=== PATIENT | female | born 1980 | race Caucasian/White ===

== ENCOUNTER 2021-05-20 10:54 | Emergency (ER) | payer SELFPAY ==
--- OUTSIDE RECORDS SUMMARY | 2021-05-20 10:57 | XMS REPORT | Continuity of Care Document ---
:1980 Author Organization [facility] t Address [address] [place] [address] Care Team Providers Name Role Phone SATURNINO RO MD [facility] ([facility]) Primary Care Physician Vick Murphy MD Attending Clinician Chester Arciniega DO Attending Clinician Hung Chavez MD Attending Clinician Deisy RO Attending Clinician Robin Ojeda MD Attending Clinician Catherine Cotton MD Attending Clinician Ella Sabillon MD Attending Clinician NELDA Attending Clinician Unavailable Jose Miguel RO Attending Clinician Luz Pruett DO Attending Clinician Babar Post MD Attending Clinician Albin RO PGrupo Attending Clinician MD Matteo TALAMANTES Attending Clinician Unavailable MD SAM MARES Attending Clinician Unavailable SUZAN Attending Clinician Unavailable KENDRICK Attending Clinician Unavailable VERONIQUE Attending Clinician Unavailable SATURNINO Attending Clinician Unavailable Quincy TOLEDO Attending Clinician Unavailable JUANITA MOCK Admitting Clinician Unavailable MD Matteo TALAMANTES Admitting Clinician Unavailable MD SAM MARES Admitting Clinician Unavailable SATURNINO Admitting Clinician Unavailable Payers Payer Name Policy Type Policy Effective Date Expiration Date Sour ce Number COVID19 [facility] [id number] 2019 [place] UNINSURED 00:00:00 [facility] TESTING AND TREATMENT [id number] [facility] UNINSURED TESTING AND TREATMENT [id number] elf-Pay Problems Condition Condition Condition Status Onset Resolution Last Treating Co mments Source Name Details Category Date Date Treatment Clinician Date COVID-19 COVID-19 Disease Active [place] virus virus 8-15 [facility] detected detected 00:00: st 00 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 Allergies, Adverse Reactions, Alerts Allergy Allergy Status Severity Reaction(s) Onset Inactive Treating Comm ents Source Name Type Date Date Clinician Amlodipi Allergy Active Moderate HIVES/RASH 2019-[address] [facility] to 0-01 [facility] - substanc 00:00: Patient e 00 [facility] Amlodipi Propensi Active Hives [place] ne ty to 424 [facility] adverse 00:00: st reaction 00 s to drug Family History Family Member Diagnosis Comments Start Date Stop Date Source Natural brother Osteochondroma [place] Natural father Hypertension [place] [facility] Natural mother Diabetes [place] Me thodist Natural mother Hypertension [place] [facility] Natural mother Testicular cancer Otilia ston Protestant Natural mother Thyroid disease [place] Social History Social Habit Start Date Stop Date Quantity Comments Source History of Cigarette Smoker [place] [facility] tobacco use Tobacco use and 2021-05-18 2021-05-18 Never used Denzel Smith ethodist exposure 00:00:00 00:00:00 Alcohol intake 2021-05-18 2021-05-18 Current drinker [place] Protestant 00:00:00 00:00:00 of alcohol (finding) Alcohol Comment 2021-02-02 2021-02-02 socially [place] Sarah ethodist 00:00:00 00:00:00 Sex Ass[birth year] At [birth year] [facility] ponchoodist 00:00:00 00:00:00 Smoking Status Start Date Stop Date Source Current some day smoker 2021-05-18 00:00:00 [place] Medications Ordered Filled Start Stop Current Ordering Indication Dosage Frequency Signature Comments Components Source Medication Medication Date Date Medication? Clinician (SIG) Name Name cetirizine Yes Take by [place] HCl (ZYRTEC 05-18 mouth. Method i ORAL) 05:14: st 06 olmesartan Yes 10mg QD Take 10 mg [place] (BENICAR) 5 07 by mouth Meth zuleyma MG tablet 05:14: daily. st 06 omeprazole Yes 20mg QD Take 20 mg [place] (PriLOSEC) 05-18 by mouth Metho di 20 MG 05:14: daily. st capsule 06 levothyroxi Yes 25ug QD Take 25 Otilia ston ne 7-07 mcg by Methodi (SYNTHROID) 05:14: mouth st 25 mcg 06 daily. tablet famotidine Yes 40mg QD Take 40 mg [place] (PEPCID) 40 07 by mouth Meth zuleyma MG tablet 05:14: daily. st 06 meloxicam 2020- Yes 15mg QD Take 1 [place] (Mobic) 15 05-18 07-17 tablet (15 Me thodi mg tablet 00:00: 23:59 mg total) st 00 :00 by mouth daily for 10 days. polyethylen 2020- No 17g QD Take 17 g Mahoney e glycol 3-24 04-23 by mouth Method i (MIRALAX) 00:00: 23:[address] 17 gram 00 :00 30 days. packet acetaminoph 2020- No acute pain 1{tbl} Q6H Take 1-2 [place] en-codeine 02-02 tablets by Me eng (TYLENOL 00:00: 23:[address] WITH 00 :00 every 6 CODEINE #3) (six) 300-30 mg hours as per tablet needed for moderate pain for up to 7 days .acute pain. cephalexin 2020- No 500mg Q.[id number] Take 1 [place] (KEFLEX) 02-02 [id number] capsule M ethodi 500 MG 00:00: 23:59 3D ([address] capsule 00 :00 total) by mouth 3 (three) times a day for 7 days. magnesium 2020- No 296mL Take 1 [place] citrate 02-02 Bottle Methodi solution 00:00: 23:59 ([address] 00 :00 total) by mouth once for 1 dose. naproxen 2020- No 500mg Q.5D Take 1 [place] (NAPROSYN) 01-28 tablet Method i 500 MG 00:00: 23:59 ([address] tablet 00 :00 total) by mouth 2 (two) times a day as needed (pain) for up to 10 days. diazePAM 2020- No 5mg Q.5D Take 1 [place] (Valium) 5 01-28 tablet (5 Met hodi MG tablet 00:00: 23:59 mg total) st 00 :00 by mouth 2 (two) times a day for 5 days. methylPREDN 2020- No follow Otilia ston ISolone 01-28 package Methodi (MEDROL 00:00: 23:[address] DOSEPAK) 4 00 :00 mg tablet acetaminoph 2020- No acute pain 1{tbl} Q6H Take 1 [place] en-codeine 01-04 tablet by Met liz (TYLENOL 00:00: 23:[address] WITH 00 :00 every 6 CODEINE #3) (six) 300-30 mg hours as per tablet needed for moderate pain for up to 2 days .acute pain. aspirin-celine 2019-11- No 1{tbl} Q6H Take 1 [facility] taminophen- 0-17 11-16 tablet by [facility] caffeine 00:00: 23:[address] (Excedrin 00 :00 every 6 Migraine) (six) 250-250-65 hours as mg per needed for tablet headaches for up to 30 days. Limit 2 per day. Do not use over 3 days. sertraline 2019-11 No 50mg QD Take 1 [place] (Zoloft) 50 0-13 10-13 tablet (50 M ethodi MG tablet 00:00: 23:59 mg total) st 00 :00 by mouth daily. pregabalin 2019-11 No 50mg Q.5D Take 1 [place] (Lyrica) 50 0-13 11-12 capsule Meth zuleyma MG capsule 00:00: 23:59 ([address] 00 :00 total) by mouth 2 (two) times a day for 30 days. TiZANidine Yes 4mg Q.[id number] Take 1 [place] (Zanaflex) 08-09 [id number] capsule (4 Methodi 4 MG 00:00: 3D mg total) st capsule 00 by mouth 3 (three) times a day as needed for muscle spasms. acetaminoph 2019- No acute pain 1{tbl} Q6H Take 1-2 [place] en-codeine 08-05 10-04 tablets by [facility] (TYLENOL 00:00: 23:[address] WITH 00 :00 every 6 CODEINE #3) (six) 300-30 mg hours as per tablet needed for moderate pain for up to 10 days .acute pain. methocarbam 2019- No 750mg Q.25D Take [address] [facility] oL 07-31-19 tablet Methodi (Robaxin-75 00:00: 23:59 ([address] 0) 750 MG 00 :00 total) by tablet mouth 4 (four) times a day for 30 days. lidocaine 2019- No 1{patch Q24H Place 1 [facility] (Lidoderm) 07-31 } patch on Meth zuleyma 5 % 00:00: 00:[address] 00 :00 daily for 30 days. Remove & Discard patch within 12 hours or as directed by methylPREDN 2020-0 2020- No follow Otilia ston ISolone 07-31 package Methodi (MEDROL 00:00: 23:[address] DOSEPAK) 4 00 :00 mg tablet acetaminoph 2019-0 2020- No acute pain 1{tbl} Q6H Take 1-2 [place]oney en-codeine 9-16 tablets by Me eng (TYLENOL 00:00: 23:[address] WITH 00 :00 every 6 CODEINE #3) (six) 300-30 mg hours as per tablet needed for severe pain for up to 5 days .acute pain. cetirizine 2019-0 2020- No 10mg QD Take 1 [place] (ZyrTEC) 10 06-23 tablet (10 M ethodi MG tablet 00:00: 23:59 mg total) st 00 :00 by mouth daily for 30 days. amoxicillin 2020-0 2020- No 1{tbl} Q12H Take 1 [place] -pot 06-23 tablet by Methodi clavulanate 00:00: 23:[address] (AUGMENTIN) 00 :00 every 12 875-125 mg (twelve) per tablet hours for 10 days. prochlorper 2020-0 2020- No 10mg Q.5D Take 1 Otilia ston azine 8-06 09-05 tablet (10 Methodi (COMPAZINE) 00:00: 23:59 mg total) st 10 MG 00 :00 by mouth 2 tablet (two) times a day as needed for nausea or vomiting (headache) for up to 30 days. prochlorper 2020-0 2020- No 10mg Q.5D Take 1 Otilia ston azine 8-06 08-06 tablet (10 Method[facility] (COMPAZINE) 00:00: 00:00 mg total) st 10 MG 00 :00 by mouth 2 tablet (two) times a day as needed for nausea or vomiting (headache) for up to 30 days. Immunizations Ordered Immunization Filled Immunization Date Status Commen ts Source Name Name Tdap 2019-02-18 Completed [place] 00:00:00 [facility] Vital Signs Vital Name Observation Time Observation Value Comments Source Systolic blood 2021-05-18 20:42:00 153 mm[Hg] Ratna silverio Protestant pressure Diastolic blood 2021-05-18 20:42:00 83 mm[Hg] [place] [facility] pressure Heart rate 2021-05-18 20:42:00 55 /min Denzel Protestant Respiratory rate 2021-05-18 20:42:00 18 /min Siva cespedes Protestant Oxygen saturation in 2021-05-18 20:42:00 100 /min Mahoney Protestant Arterial blood by Pulse oximetry Body temperature 2021-05-18 17:52:52 36.83 Alejandra Siva cespedes Protestant Body height 2021-05-18 17:48:00 165.1 cm [place] [facility] Body weight 2021-05-18 17:48:00 81.647 kg [place] [facility] BMI 2021-05-18 17:48:00 29.95 kg/m2 [place] [facility] Weight 2020-08-12 23:31:00 163 [lb_av] [facility] - Patients [facility] BMI (Body Mass 2020-08-12 23:31:00 26.3 kg/m2 [facility] - Index) Patients [facility] Procedures Procedure Date / Time Performing Clinician Source Performed HC COMPLETE BLD COUNT 2021-05-18 19:16:00 Gino Ojeda on Protestant W/AUTO DIFF BASIC METABOLIC PANEL 2021-05-18 19:16:00 Gino Ojeda on Protestant TROPONIN 2021-05-18 19:16:00 Gino Ojeda Met hodist B NATRIURETIC PEPTIDE 2021-05-18 19:16:00 Gino Ojeda on Protestant ESTIMATED GFR 2021-05-18 19:16:00 Gino Ojeda Met hodist HCG QUALITATIVE, SERUM 2021-05-18 19:16:00 Leatha Murphy [place] SCREEN LIPASE LEVEL 2021-05-18 19:16:00 Gino Ojeda Met hodist XR CHEST 1 VW PORTABLE 2021-05-18 18:50:11 Gino Ojeda Protestant ECG ED PRELIMINARY 2021-05-18 18:19:14 Leatha Murphyto n Protestant INTERPRETATION ECG 12-LEAD 2021-05-18 18:10:[address] RENAL STONE PROTOCOL 2021-02-02 10:25:32 Francisco J Lopez URINE CULTURE 2021-02-02 09:07:00 Francisco J Lopez HC COMPLETE BLD COUNT 2021-02-02 09:03:00 Francisco J Lopez W/AUTO DIFF BASIC METABOLIC PANEL 2021-02-02 09:03:00 Francisco J Lopez HCG QUALITATIVE, SERUM 2021-02-02 09:03:00 Francisco J Lopez on Protestant SCREEN ESTIMATED GFR 2021-02-02 09:03:00 Francisco J Lopez odglenn URINALYSIS SCREEN AND 2021-02-02 08:44:00 Francisco J Lopez MICROSCOPY, WITH REFLEX TO CULTURE VA INJECT TRIGGER POINT, 1 2021-01-04 17:20:12 Omar Chavez OR 2 Go HC COMPLETE BLD COUNT 2021-01-04 16:06:00 Zulma Chavez W/AUTO DIFF Go COMPREHENSIVE METABOLIC 2021-01-04 16:06:00 Zulma Chavez PANEL Go ESTIMATED GFR 2021-01-04 16:06:00 Zulma Chavez Go METHYLMALONIC ACID, SERUM 2020-08-24 12:48:00 Shukri Sabillon ALDOSTERONE/RENIN RATIO 2020-08-17 00:00:00 Kirill Villegas BASIC METABOLIC PANEL 2020-08-17 00:00:00 Kirill Villegas on Protestant Carlitos METANEPHRINES, PLASMA 2020-08-17 00:00:00 Kirill Villegas on Protestant [place] TROPONIN 2020-08-05 22:16:[address] ANGIOGRAM CHEST ABDOMEN 2020-08-05 20:56:05 Shanique Arciniega PELVIS W AND OR WITHOUT Chester CONTRAST URINE CULTURE 2020-08-05 19:38:00 Shanique Arciniega Meth odist Chester HCG QUALITATIVE, URINE 2020-08-05 19:38:00 Shanique Arciniega on Protestant SCREEN Chester URINALYSIS SCREEN AND 2020-08-05 19:38:00 Shanique Arciniega n Protestant MICROSCOPY, WITH REFLEX TO Chester CULTURE HC COMPLETE BLD COUNT 2020-08-05 19:23:00 Zulma Chavez W/AUTO DIFF Go COMPREHENSIVE METABOLIC 2020-08-05 19:23:00 Zulma Chavez PANEL Go TROPONIN 2020-08-05 19:23:00 Zulma Chavez Go B NATRIURETIC PEPTIDE 2020-08-05 19:23:00 Zulma Chavez Go ESTIMATED GFR 2020-08-05 19:23:00 Zulma Chavez Go PHOSPHORUS LEVEL 2020-08-05 19:23:00 Zulma Chavez Protestant Go MAGNESIUM LEVEL 2020-08-05 19:23:00 Zulma Chavez Go SMEAR REVIEW 2020-08-05 19:23:00 Zulma Chavez Go ECG ED PRELIMINARY 2020-08-05 19:16:19 Shanique Arciniega M ethodist INTERPRETATION Chester ECG 12-LEAD 2020-08-05 19:00:32 Zulma Chavez Protestant Go HC COMPLETE BLD COUNT 2020-07-31 01:03:00 Daniel Pruett W/AUTO DIFF BASIC METABOLIC PANEL 2020-07-31 01:03:00 Daniel Pruett THYROID STIMULATING 2020-07-31 01:03:00 Daniel Pruett HORMONE T4, FREE 2020-07-31 01:03:00 Daniel Pruett ESTIMATED GFR 2020-07-31 01:03:00 Daniel Pruett MRI LUMBAR SPINE WO 2020-07-23 00:44:13 Sidney Post CONTRAST MRI THORACIC SPINE WO 2020-07-23 00:37:15 Sidney Post CONTRAST MRI CERVICAL SPINE WO 2020-07-23 00:20:39 Sidney Post CONTRAST MRI BRAIN WO CONTRAST 2020-07-23 00:20:24 Sidney Post IONIZED CALCIUM 2020-07-22 23:28:00 Sidney Post HC COMPLETE BLD COUNT 2020-07-22 23:28:00 Sidney Post W/AUTO DIFF MAGNESIUM LEVEL 2020-07-22 23:28:00 Sidney Post COMPREHENSIVE METABOLIC 2020-07-22 23:28:00 Sidney Post PANEL PHOSPHORUS LEVEL 2020-07-22 23:28:00 Sidney Post ESTIMATED GFR 2020-07-22 23:28:00 Sideny Post WET PREP 2020-06-26 18:59:00 Enedina Gillespie CHLAMYDIA GONORRHOEAE AND 2020-06-26 18:59:00 Enedina Gillespie TRICHOMONAS PANEL URINE CULTURE 2020-06-26 18:34:00 Enedina Gillespie URINALYSIS SCREEN AND 2020-06-26 18:12:00 Enedina Gillespie n Protestant MICROSCOPY, WITH REFLEX TO CULTURE HCG QUALITATIVE, URINE 2020-06-26 18:12:00 Enedina Gillespie on Protestant SCREEN COVID-19 QUALITATIVE 2020-06-23 09:09:00 Serene Mock RT-PCR CT HEAD WO CONTRAST 2020-06-17 05:37:10 Sidney Post HC COMPLETE BLD COUNT 2020-06-17 05:09:00 Sidney Post W/AUTO DIFF COMPREHENSIVE METABOLIC 2020-06-17 05:09:00 Sidney Post PANEL LACTIC ACID LEVEL, SEPSIS 2020-06-17 05:09:00 Sidney Post - NOW AND REPEAT 2X EVERY 3 HOURS ESTIMATED GFR 2020-06-17 05:09:00 Sidney Post ECG ED PRELIMINARY 2020-06-10 03:44:16 Zulma Chavez INTERPRETATION Go HC COMPLETE BLD COUNT 2020-06-10 01:50:00 Zulma Chavez W/AUTO DIFF Go COMPREHENSIVE METABOLIC 2020-06-10 01:50:00 Zulma Chavez PANEL Go CREATINE KINASE, TOTAL 2020-06-10 01:50:00 Zulma Chavez (CPK) Go TROPONIN 2020-06-10 01:50:00 Zulma Chavez Go B NATRIURETIC PEPTIDE 2020-06-10 01:50:00 Zulma Chavez Go HCG QUALITATIVE, SERUM 2020-06-10 01:50:00 Zulma Chavez SCREEN Go ESTIMATED GFR 2020-06-10 01:50:00 Zulma Chavez Go XR CHEST 1 VW PORTABLE 2020-06-10 01:41:28 Zulma Chavez Go ECG 12-LEAD 2020-06-10 01:24:56 Zulma Chavez Go COVID-19 QUALITATIVE 2020-06-08 09:35:00 Sidney Talamantes Protestant RT-PCR COVID-19 QUALITATIVE 2020-06-01 09:33:00 Fatoumata Mares Protestant RT-PCR Plan of Care Planned Activity Planned Date Details Comments Source Future Scheduled Test 2021-06-12 INFLUENZA VACCINE H mary Protestant 00:00:00 [code = INFLUENZA VACCINE] Future Scheduled Test 2001 Screening for [place] 00:00:00 malignant neoplasm of cervix (procedure) [code = 484118724] Future Scheduled Test 1998 Hepatitis C Ratna n Protestant 00:00:00 screening (procedure) [code = 197137970] Future Scheduled Test 1992 COVID-19 VACCINE Ho alex Protestant 00:00:00 (1) [code = COVID-19 VACCINE (1)] Instructions Contusion [facility] Encounters Start End Encounter Admission Attending Care Care Encounter Source Date/Time Date/Time Type Type Clinicians Facility Department ID 2021-05-18 2021-05-18 Emergency NABEEL, [facility] [place] 064 [id number] [place] 00:00:00 00:00:00 KALIF 519 Method i 2021-05-18 2021-05-18 Emergency MONICA, [facility] [place] 064 [id number] [place] 00:00:00 00:00:00 YASIN 455 Method i 2021-05-05 2021-05-05 Emergency WINGKUN, [facility] [id number] [place] 00:00:00 00:00:00 FATOUMATA-MAY 035 Me thodi 2021-02-02 2021-02-02 Emergency OGHOGHO, [place] [address] [id number] [place] 00:00:00 00:00:00 EYITEMI 474 Method i 2021-01-28 2021-01-28 Emergency PARVEEN, [place] [address] [id number] [place] 00:00:00 00:00:00 GINO 260 Method i 2021-01-04 2021-01-04 Emergency WINGKUN, [facility] [id number] [place] 00:00:00 00:00:00 FATOUMATA-MAY 014 Me thodi 2020-08-28 2020-08-28 Emergency DANDRE, ZOYA [facility] [place] 064 [id number] [place] 00:00:00 00:00:00 227 Method i 2020-08-24 2020-08-24 Outpatient FRIDA, [facility] [id number] [place] 00:00:00 00:00:00 SHUKRI 830 Method i 2020-08-24 2020-08-24 Outpatient FRIDA, [facility] [id number] [place] 00:00:00 00:00:00 SHUKRI 295 Method i 2020-08-17 2020-08-17 Outpatient NELDA, [facility] [id number] [place] 00:00:00 00:00:00 KIRILL 09Roberto Lamaro iona 2020-08-12 2020-08-12 Registered [facility] [id number] [facility] St. 23:50:00 23:50:00 Emergency Patients 44 Dhara - [facility] 2020-08-09 2020-08-09 Emergency ENEDINA GILLESPIE [facility] [place] 064 [id number] [place] 00:00:00 00:00:00 864 Method i 2020-08-05 2020-08-05 Emergency NABEEL, [place] [address] [id number] [place] 00:00:00 00:00:00 KALIF 600 Method i 2020-07-31 2020-07-31 Emergency DANIEL PRUETT [place] [address] [id number] [place] 00:00:00 00:00:00 432 Method i 2020-07-22 2020-07-23 Emergency ANTOINE, [place] [address] [id number] [place] 00:00:00 00:00:00 SIDNEY 816 Method i 2020-06-26 2020-06-26 Emergency ENEDINA GILLESPIE [facility] [id number] [place] 00:00:00 00:00:00 160 Method i 2020-06-23 2020-06-23 Emergency ALBIN, [place] [address] [id number] [place] 00:00:00 00:00:00 SIDNEY 915 Method i 2020-06-17 2020-06-17 Emergency ANTOINE, [place] [address] [id number] [place] 00:00:00 00:00:00 SIDNEY 921 Method i 2020-06-10 2020-06-10 Emergency WINGKUN, [place] [address] [id number] [place] 00:00:00 00:00:00 FATOUMATA-MAY 583 Me thodi 2020-06-08 2020-06-08 Outpatient TALAMANTES, [facility] [id number] [place] 00:00:00 00:00:00 SIDNEY 361 Method i 2020-06-01 2020-06-01 Outpatient MARES, [facility] [id number] [place] 00:00:00 00:00:00 FATOUMATA 531 Method i 2020-05-04 2020-05-04 Emergency TALAMANTES, [place] [address] [id number] [place] 00:00:00 00:00:00 SIDNEY 486 Method i 2020-04-13 2020-04-13 Outpatient NELDA, [facility] [id number] [place] 00:00:00 00:00:00 MOHAMMED 807 Metho di 2020-03-31 2020-04-01 Emergency [place]ANDRE, [place] [id number] [place] 00:00:00 00:00:00 330 Method i 2020-03-30 2020-03-30 Emergency NING, [place] [address] [id number] [place] 00:00:00 00:00:00 FATOUMATASimonMAY 517 Me thodi 2020-03-17 2020-03-17 Emergency [place] [id number] [place] 00:00:00 00:00:00 107 Method i 2020-03-09 2020-03-09 Emergency DE MCKEON, [place] [address] [id number] [place] 00:00:00 00:00:00 CHRISTOPHER 234 Me odi 2019-12-26 2019-12-26 Emergency VERONIQUE, [place] [address] [id number] [place] 00:00:00 00:00:00 SANIYA 787 Method i 2019-10-13 2019-10-13 Emergency DE MIKE, [place] [address] [id number] [place] 00:00:00 00:00:00 CHRISTOPHER 061 Me odi 2019-08-20 2019-08-21 Emergency PARVEEN, [place] [address] [id number] [place] 00:00:00 00:00:00 GINO 828 Method i 2019-08-17 2019-08-19 Inpatient SATURNINO, [facility] [id number] [place] 00:00:00 00:00:00 ENRRIQUE 251 Method i 2019-08-16 2019-08-16 Emergency PARVEEN, [place] [address] [id number] [place] 00:00:00 00:00:00 GINO 156 Method i 2019-08-09 2019-08-09 Emergency NABEEL, [facility] [id number] [place] 00:00:00 00:00:00 KALIF 475 Method i 2019-08-08 2019-08-09 Emergency NABEEL, [facility] [id number] [place] 00:00:00 00:00:00 KALIF 508 Method i 2018-07-18 2018-07-18 Departed 1 TRE, [facility] [id number] [facility]. 11:04:00 13:45:00 Emergency AMBICA 65 [facility] Results Test Description Test Test Results Result Source Time Comments Comments XR Chest 1 Vw 2021-05- Interface, Radiology [place] Portable 07 Results Incoming - Method ist 19:02:26 05/18/2021 7:05 PM CDT EXAMINATION: XR CHEST 1 PORTABLECLINICAL HISTORY: chest painCOMPARISON: Chest x-ray dated June 10, 2020IMPRESSION:Single frontal view the chest shows an ectatic aorta. Heart size is normal. Lungs are clear. Osseous structures are intact. Findings are similar to the prior exam.[id number][id number] ECG ED Preliminary 2021-05- Leatha Murphy MD [place] Interpretation - 07 05/18/2021 8:33 PMECG Protestant Not an Order 18:19:14 ED Preliminary Interpretation - Not an OrderPerformed by: Letaha Murphy MDAuthorized by: Leatha Murphy MD ECG reviewed by ED Physician in the absence of a label coder: yes Interpretation: Interpretation: normal Rate: ECG rate: 67 ECG rate assessment: normal Rhythm: Rhythm: sinus rhythm Ectopy: Ectopy: none QRS: QRS axis: Normal QRS intervals: NormalConduction: Conduction: normal ST segments: ST segments: NormalT waves: T waves: normal CT Renal Stone 2021-01- Interface, Radiology [place] Protocol 24 Results Incoming - Method ist 11:13:46 02/02/2021 11:16 AM CDT EXAMINATION: CT RENAL STONE PROTOCOLCLINICAL HISTORY: "Flank pain." COMPARISON: CT abdomen dated November 26, 2018TECHNIQUE: Multiple axial CT images of the abdomen and pelvis were obtained without the intravenous administration of iodinated contrast. Sagittal and coronal computerized, reformatted images were obtained and archived. The lack of intravenous contrast reduces the sensitivity of detecting solid organ and vascular disease. CT scans are performed using radiation dose reduction techniques. Technical factors are evaluated and adjusted to ensure appropriate moderation of exposure. Automated dose management technology is applied to adjust radiation exposure while achieving a diagnostic quality image. FINDINGS:VISUALIZED LOWER CHEST: Unremarkable.HEPATOBILI DAVID: Multiple hypodensities seen throughout the liver parenchyma, largest seen in segment 6 measuring 16 mm. Stable.GALLBLADDER: Normal.SPLEEN: No splenomegaly.PANCREAS: Unremarkable within the limitations of a noncontrast exam.ADRENALS: There is a lipid-rich left adrenal gland adenoma measuring 14 mm.KIDNEYS: No stones or hydronephrosis.PERITONE UM/RETROPERITONEUM: No free air or fluid. No lymphadenopathy.ABDOMIN AL AORTA/IVC: No signs of aneurysm.GI TRACT: There is a small sliding hiatal hernia. Moderate colonic stool burden suggestive for constipation. There are no signs of appendicitis.PELVIC ORGANS/BLADDER: Unremarkable.BONES AND SOFT TISSUES: Unremarkable.IMPRESSION :1. Negative for nephrolithiasis or hydronephrosis.2. Moderate colonic stool burden suggestive for constipation.3. Small hypodensities seen throughout the liver parenchyma, stable and likely represent cysts.4. Small sliding hiatal hernia.5. There is a benign lipid-rich left adrenal gland adenoma measuring 14 mm.[id number] Digital 2020-12- Zulma Chavez ton Block/Trigger 23 MD Hung 01/06/2021 M ethodist Injections 17:20:12 7:19 PMDigital Block/Trigger InjectionsPerformed by: Zulma Chavez MDAuthorized by: Zulma Chavez MD Consent: Consent obtained: Verbal and written Consent given by: Patient Risks discussed: Allergic reaction Alternatives discussed: No treatment and delayed treatmentIndications: Indications: Pain reliefLocation: Therapuetic Trigger Point Injection: Single/multiple trigger point(s): 1-2 muscle groupsPre-procedure details: Neurovascular status: intact Skin preparation: AlcoholProcedure details (see MAR for exact dosages): Syringe type: Controlled syringe Needle gauge: 25 G Anesthetic injected: Lidocaine 1% w/o epi Injection procedure: Anatomic landmarks identified, incremental injection, negative aspiration for blood, anatomic landmarks palpated and introduced needlePost-procedure details: Outcome: Pain relieved Patient tolerance of procedure: Tolerated well, no immediate complications Methylmalonic acid, serum 2020-08-31 10:11:00 Test Item Value Reference Range Interpretation Comme nts Methylmalonic acid 155 nmol/L 0-378 (test code = 51647-3) Disclaimer: (test code Comment This test was developed and its = 1272) performance characteristics determined by [employer]. It has not been cleared or approvedby [facility] Food and Drug Administration. SAAD (test code = SAAD) Performed at: [address] [id number] Director: Anita Alves MD, Phone: [phone] [facility] MethodistBlood hemoglobin measurement (moles/volume)2020-08-12 23:37:00 Test Item Value Reference Range Interpretation Comments Hemoglobin (test code = 88631-1) 13.2 12.0-16.0 [facility] HospitalAutomated blood hematocrit (volume fraction)2020-08-12 23:37:00 Test Item Value Reference Range Interpretation Comments Hematocrit (test code = 4544-3) 40.3 34.2-44.1 [facility] HospitalAutomated erythrocyte mean corpuscular hluspt4953-94-37 23:37:00 Test Item Value Reference Range Interpretation Comments Mean Corpuscular Volume (test code = 88.8 81-99 787-2) [facility] HospitalAutomated erythrocyte mean corpuscular hemoglobin (mass per erythrocyte)2020-08-12 23:37:00 Test Item Value Reference Range Interpretation Comments Mean Corpuscular Hemoglobin (test code 29.1 28-32 = 785-6) [facility] HospitalAutomated erythrocyte mean corpuscular hemoglobin concentration measurement (mass/volume)2020-08-12 23:37:00 Test Item Value Reference Range Interpretation Comments Mean Corpuscular Hemoglobin Concent 32.8 31-35 (test code = 786-4) [facility] HospitalRDW YpeBg-Cde4731-17-01 23:37:00 Test Item Value Reference Range Interpretation Comments Red Cell Distribution Width (test code 14.1 11.7-14.4 = 26878-5) [facility] HospitalAutomated blood platelet count (count/volume)2020-08-12 23:37:00 Test Item Value Reference Range Interpretation Comments Platelet Count (test code = 777-3) 163 140-360 [facility] HospitalAutat[facility] blood segmented neutrophil count as percentage of total ucefgfxvwr7974-49-70 23:37:00 Test Item Value Reference Range Interpretation Comments Neutrophils (%) (Auto) (test code = 53.4 38.7-80.0 72692-2) [facility] HospitalAutomated blood lymphocyte count as percentage ot total fkgktnvbet7532-67-88 23:37:00 Test Item Value Reference Range Interpretation Comments Lymphocytes (%) (Auto) (test code = 37.1 18.0-39.1 736-9) [facility] HospitalAutomated blood monocyte count as percentage of total dkuhlvxysu2277-25-64 23:37:00 Test Item Value Reference Range Interpretation Comments Monocytes (%) (Auto) (test code = 7.7 4.4-11.3 5905-5) [facility] HospitalAutomated blood eosinophil count as percentage of total ygrpytcqyo0084-94-30 23:37:00 Test Item Value Reference Range Interpretation Comments Eosinophils (%) (Auto) (test code = 1.1 0.0-6.0 713-8) [facility] HospitalAutomated blood basophil count as percentage of total lfohgmmlvf0055-01-61 23:37:00 Test Item Value Reference Range Interpretation Comments Basophils (%) (Auto) (test code = 0.5 0.0-1.0 706-2) [facility] HospitalFluoroscopic procedure less than one hour mzgpjwlg4126-68-90 23:37:00 Test Item Value Reference Range Interpretation Comments IM GRANULOCYTES % (test code = IM 0.2 0.0-1.0 GRANULOCYTES %) [facility] HospitalAutomated blood neutrophil count 2020-08-12 23:37:00 Test Item Value Reference Range Interpretation Comments Neutrophils # (Auto) (test code = 3.4 2.1-6.9 751-8) [facility] HospitalBlood lymphocytes count (number/volume) 2020-08-12 23:37:00 Test Item Value Reference Range Interpretation Comments Lymphocytes # (Auto) (test code = 2.4 1.0-3.2 14609-5) [facility] HospitalBlsh[facility] monocytes automated count (number/volume)2020-08-12 23:37:00 Test Item Value Reference Range Interpretation Comments Monocytes # (Auto) (test code = 742-7) 0.5 0.2-0.8 [facility] HospitalAutomated blood eosinophil count 2020-08-12 23:37:00 Test Item Value Reference Range Interpretation Comments Eosinophils # (Auto) (test code = 0.1 0.0-0.4 711-2) [facility] HospitalAutomated blood basophil count (count/volume)2020-08-12 23:37:00 Test Item Value Reference Range Interpretation Comments Basophils # (Auto) (test code = 704-7) 0.0 0.0-0.1 [facility] HospitalFluoroscopic procedure less than one hour dgtxbtip5161-36-34 23:37:00 Test Item Value Reference Range Interpretation Comments Absolute Immature Granulocyte (auto 0.01 0-0.1 (test code = Absolute Immature Granulocyte (auto) [facility] Lakeerum or plasma sodium measurement (moles/volume)2020-08-12 23:37:00 Test Item Value Reference Range Interpretation Comments Sodium Level (test code = 2951-2) 141 136-145 [facility] Lakeerum or plasma potassium measurement (moles/volume)2020-08-12 23:37:00 Test Item Value Reference Range Interpretation Comments Potassium Level (test code = 2823-3) 3.5 3.5-5.1 [facility] Lakeerum or plasma chloride measurement (moles/volume)2020-08-12 23:37:00 Test Item Value Reference Range Interpretation Comments Chloride Level (test code = 2075-0) 106 98-107 [facility] Lakeerum or plasma carbon dioxide, total measurement (moles/volume)2020-08-12 23:37:00 Test Item Value Reference Range Interpretation Comments Carbon Dioxide Level (test code = 25 22-29 8-9) [facility] Lakeerum or plasma anion cfs9955-02-24 23:37:00 Test Item Value Reference Range Interpretation Comments Anion Gap (test code = 65555-1) 13.5 8-16 [facility] Lakeerum or plasma urea nitrogen measurement (mass/volume)2020-08-12 23:37:00 Test Item Value Reference Range Interpretation Comments Blood Urea Nitrogen (test code = 11 7-26 3094-0) [facility] Lakeerum or plasma creatinine measurement (mass/volume)2020-08-12 23:37:00 Test Item Value Reference Range Interpretation Comments Creatinine (test code = 2160-0) 0.69 0.57-1.11 [facility] Lakeerum or plasma urea nitrogen/creatinine mass biuex9171-36-68 23:37:00 Test Item Value Reference Range Interpretation Comments BUN/Creatinine Ratio (test code = 16 6-25 3097-3) [facility] HospitalEstimated glomerular filtration rate (GFR) xywhfgyqkjawg1288-72-18 23:37:00 Test Item Value Reference Range Interpretation Comments Estimat Glomerular Filtration Rate > 60 >60 (test code = 376146682) Ranges were taken from the National Kidney Disease Education Program and the National Kidney Foundation literature.Reference ranges:60 or greater: Xjhywt18- 59 (for 3 consecutive months): Chronic kidneydisease 15 or less: Kidney failure [facility] HospitalGlucose pgkzcrquoaz5091-67-96 23:37:00 Test Item Value Reference Range Interpretation Comments Glucose Level (test code = IZA4751) 86 74-118 [facility] Lakeerum or plasma calcium measurement (mass/volume)2020-08-12 23:37:00 Test Item Value Reference Range Interpretation Comments Calcium Level (test code = 61550-6) 9.3 8.4-10.2 [facility] HospitalBlood leukocytes automated count (number/volume)2020-08-12 23:37:00 Test Item Value Reference Range Interpretation Comments White Blood Count (test code = 6690-2) 6.34 4.8-10.8 [facility] HospitalBlood erythrocytes automated count (number/volume)2020-08-12 23:37:00 Test Item Value Reference Range Interpretation Comments Red Blood Count (test code = 789-8) 4.54 3.6-5.1 [facility] HospitalUrine color mjrjwcsubqook5008-94-72 23:35:00 Test Item Value Reference Range Interpretation Comments Urine Color (test code = 5778-6) YELLOW YELLOW [facility] HospitalUrine cqgnuro6616-39-84 23:35:00 Test Item Value Reference Range Interpretation Comments Urine Clarity (test code = 33201-4) CLEAR CLEAR [facility] Lakepecific gravity of Urine by Test strip 2020-08-12 23:35:00 Test Item Value Reference Range Interpretation Comments Urine Specific [place] (test code = >=1.030 1.010-1.025 5811-5) [facility] HospitalUrine pH measurement by automated test mbetu6764-94-63 23:35:00 Test Item Value Reference Range Interpretation Comments Urine pH (test code = 80337-4) 6 5-7 [facility] HospitalUrine leukocyte esterase detection by nkltpfss6616-77-55 23:35:00 Test Item Value Reference Range Interpretation Comments Urine Leukocyte Esterase (test code NEGATIVE NEGATIVE = 5799-2) [facility] HospitalUrine nitrite uexjehtpq0559-32-97 23:35:00 Test Item Value Reference Range Interpretation Comments Urine Nitrite (test code = 73745-4) NEGATIVE NEGATIVE [facility] HospitalUrine protein measurement by test strip (mass/volume)2020-08-12 23:35:00 Test Item Value Reference Range Interpretation Comments Urine Protein (test code = 5804-0) NEGATIVE NEGATIVE [facility] HospitalUrine glucose ifoumlppy4420-18-54 23:35:00 Test Item Value Reference Range Interpretation Comments Urine Glucose (UA) (test code = NEGATIVE NEGATIVE 2349-9) [facility] HospitalUrine ketones detection by automated test bchvg6747-80-32 23:35:00 Test Item Value Reference Range Interpretation Comments Urine Ketones (test code = 21343-1) NEGATIVE NEGATIVE [facility] HospitalUrine urobilinogen measurement by test strip (mass/volume)2020-08-12 23:35:00 Test Item Value Reference Range Interpretation Comments Urine Urobilinogen (test code = 0.2 0.2-1 63982-5) [facility] HospitalUrine total bilirubin measurement (mass/volume)2020-08-12 23:35:00 Test Item Value Reference Range Interpretation Comments Urine Bilirubin (test code = 1978-6) NEGATIVE NEGATIVE [facility] HospitalUrine erythrocytes hqlnanaot9452-02-29 23:35:00 Test Item Value Reference Range Interpretation Comments Urine Blood (test code = 80350-7) NEGATIVE NEGATIVE [facility] HospitalAutomated urine sediment leukocyte count by microscopy (number/high power field)2020-08-12 23:35:00 Test Item Value Reference Range Interpretation Comments Urine WBC (test code = 5821-4) 0-5 0-5 [facility] HospitalErythrocytes detection in urine sediment by light taesrzynms4303-64-98 23:35:00 Test Item Value Reference Range Interpretation Comments Urine RBC (test code = 27250-7) 0-5 0-5 [facility] HospitalBacteria detection in urine sediment by light amwvyfiegf1636-12-17 23:35:00 Test Item Value Reference Range Interpretation Comments Urine Bacteria (test code = 70513-9) MANY NONE [facility] HospitalEpithelial cells detection in urine sediment by light ytipgynxgj3007-35-61 23:35:00 Test Item Value Reference Range Interpretation Comments Urine Epithelial Cells (test code = FEW NONE 67734-3) [facility] HospitalUrine human chorionic gonadotropin (hCG) mzdjolrcx4705-18-14 23:35:00 Test Item Value Reference Range Interpretation Comments Urine Test (test code = NEGATIVE NEGATIVE 2106-3) [facility] HospitalCT Angiogram Chest W Contrast Abdomen W Contrast Pelvis W Gdelqkjv9896-71-16 21:10:46Hm Interface, Radiology Results 08/05/2020 9:13 PM CDT EXAMINATION: CT ANGIOGRAM CHEST ABDOMEN PELVIS W AND OR WITHOUT CONTRASTCLINICAL HISTORY: cp radiate from back. r o dissectionTECHNIQUE: Multiple CT angiographic images of the chest, abdomen, and pelvis were obtained during intravenous administration of contrast. Multiple c omputerized reformatted images as well as 3-D volume rendered images were also obtained. Precontrastimages of the chest, abdomen, and pelvis were obtained. CT imaging was performed with iterative reconstruction techniques and/or automated exposure control to reduce radiation dose. COMPARISON: CT abdomen/pelvis 03/31/2020IMPRESSION:Chest:*The heart is normal in size. No significant pericardial effusion is seen. The main pulmonary trunk is within normal limits in caliber. No central pulmonary embolus is identified.*No thoracic lymphadenopathy is seen.*Mild dependent atelectasis is seen in both lower lobes. No suspicious pulmonary nodule or consolidation is identified. The central airways are patent.*No pleural effusion or pneumothorax is seen.Abdomen:* A few scattered hypodensities in the liver measure up to 1.4 cm, grossly unchanged and suggestive of cysts.*The gallbladder, spleen, pancreas, and right adrenal gland are unremarkable.*A 1.1 cm nodule is seen in the left adrenal gland, consistent with an adenoma.*The kidneys are normal in size. No nephrolithiasis or hydronephrosis is identified.No suspicious renal mass is seen.*No mesenteric or retroperitoneal lymphadenopathy is seen.*No significant free fluid or air is identified.*No bowel wall thickening or obstruction is seen. The appendixis normal.Pelvis:* The urinary bladder appears normal.*A left adnexal structure measures up to 1.8 cm, suggestive of an ovarian cyst. The uterus and right adnexa are grossly unremarkable.Musculoskeletal:*No acute or aggressive osseous lesion is seen.CTA: No evidence of aortic aneurysm or dissection isseen.Aortic measurements as follows: Mid ascending aorta 3.4 cm, mid aortic arch 2.4 cm, mid descending aorta 2.3 cm, at celiac artery 2.2 cm, at bifurcation 1.5 cm.There is common origin of the innominate artery and left common carotid artery. The great vessels of the neck are patent.The celiac artery and its distal branches are patent. The SMA and its distal branches are patent. 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 A single left renal artery is patent.The YONY and its distal branches are patent.Bilateral iliac and partially visualized femoral arteries are widely patent. SUMMARY:1.No evidence of aortic aneurysm or dissection.2.No acute intrathoracic, intra-abdominal, or pelvic abnormality.[facility] [place]-[id number] [facility]DR[facility] kuof8228-73-83 19:49:58 Test Item Value Reference Range Interpretation Comments Ventricular rate (test 68 code = 253) Atrial rate (test code 68 = 255) VA interval (test code 154 = 266) QRSD interval (test 88 code = 260) QT interval (test code 416 = 264) QTC interval (test code 442 = 265) P axis 1 (test code = 68 267) QRS axis 1 (test code = 65 268) T wave axis (test code 55 = 270) EKG impression (test Normal sinus rhythm code = 273) with sinus arrhythmia-Normal ECG-In automated comparison with ECG of 10-JUN-2020 01:24,-No significant change was found- [facility] Lumbar Spine Wo Xbpryyfl5093-16-15 00:56:46Hm Interface, Radiology Results 07/23/2020 12:59 AM CDT EXAMINATION: MRI LUMBAR SPINE WO CONTRASTCLINICAL HISTORY: hx of centralstenosis now parathesiaCOMPARISON: None.FINDINGS:Lowermost functional disc space is assumed to be L5-S1.Mild retrolisthesis at L5-S1.No suspicious focal bone marrow lesionsVisualized spinal cord is normal in appearance.Disc desiccation at L4-5 and L5-S1.L1-2: No central canal or foraminal narrowing.L2-3: No central canal or foraminal narrowing.L3-4: Mild facet arthropathy. No central canal or foraminal narrowing.L4-5: Bilateral facet arthropathy. No central canal or foraminal narrowing.L5-S1: Bilateral facet arthropathy. Mild retrolisthesis. No central canal or foraminal narrowing. IMPRESSION:Multilevel facet arthropathy without central canal or foraminal narrowing.[facility]ALSonyaSt[facility] Thoracic Spine Wo Gsadbygi5544-43-01 00:39:44Hm Interface, Radiology Results 07/23/2020 12:42 AM CDT EXAMINATION: MRI THORACIC SPINE WO CONTRASTCLINICAL HISTORY: hx of central stenosis now parathesiaCOMPARISON: None.Findings:Thoracic spine alignment is within normal limits.No suspicious focal bone marrow lesions.Visualized spinal cord is normal in size and signal intensity.No significant degenerative disc disease.Mild multilevel facet arthropathy.No central canal or foraminal narrowing in thoracic spine.IMPRESSION:No central canal or foraminal narrowing in the thoracic s pine.[facility] Cervical Spine Wo Twbqikca4081-17-58 00:36:17Hm Interface, Radiology Results 07/23/2020 12:39 AM CDT EXAMINATION: MRI CERVICAL SPINE WO CONTRASTCLINICAL HISTORY: hx of central stenosis parathesiaCOMPARISON: August 17, 2019FINDINGS:Reversal cervical lordosis.Multilevel discspace narrowing and endplate degenerative changes worst at C4-5 and C5-6.No suspicious focal bone marrow lesions.Visualized spinal cord is normal in appearance.C2-3: No canal or foraminal narrowing.C3-4: No canal or foraminal narrowing.C4-5: Posterior osteophyte disc complex asymmetric to the right causes mild effacement of subarachnoid space. No foraminal narrowing.C5- C6: Posterior osteophyte disc complex asymmetric to the right causes stable narrowing of the canal. There is flattening of the rightventral surface of the cord. Facet and uncal arthrosis causes stable left foraminal narrowing.C6-C7: Posterior osteophyte disc complex asymmetric to the left causes stable narrowing of the canal. Facetand uncal arthrosis causes stable left foraminal narrowing.C7-T1: No central canal or foraminal narrowing.IMPRESSION:Stable multilevel degenerative changes worst at C5-6.[facility]-Seema GaxiolaistMRI Brain Wo Omvvzvem0704-17-61 00:32:28Hm Interface, Radiology Results 07/23/2020 12:35 AM CDT EXAMINATION: MRI BRAIN WO CONTRASTCLINICAL HISTORY: parathesiaCOMPARISON: June 17, 2020Findings:No intracranial hemorrhage, acute ischemia, extra-axial fluid collections or parenchymal mass lesions. No hydrocephalus. No suspicious focal bone marrow lesions.IMPRESSION:No acute intracranial abnormalities or mass lesions.[facility]-Seema Protestant SARS-CoV-2 (COVID-19) RNA [Presence] in Respiratory specimen by AMELIE with probe jjbmnizyk0418-88-77 20:06:30 Test Item Value Reference Range Interpretation Comments SARS-CoV-2 (COVID-19) RNA [Presence] Detected Not-Detected in Respiratory specimen by AMELIE with probe detection (test code = 31888-7) CT Head Wo Pjmcbsfi3196-51-82 05:48:06Hm Interface, Radiology Results 06/17/2020 5:51 AM CDT EXAMINATION: CT HEAD WO CONTRASTCLINICAL HISTORY: headacheCOMPARISON: 03/17/2020TECHNIQUE: Noncontrast enhanced images of the brain were obtained from the skull base to the vertex. Both soft tissue and bone reconstruction algorithms were performed.CT imaging was performed withiterative reconstruction technique and/or automated exposure control to reduce radiation dose.IMPRESS ION:No intracranial hemorrhage, mass, mass effect, or herniation.No acute osseous abnormalities. Mild mucosal thickening of left maxillary sinus. Minimal air-fluid levels seen of left sphenoid sinus.Summary:No acute intracranial abnormalities.[facility] [place]-FE96PBBMMmujwcrHouston Methodist The Woodlands HospitalTcxmtzaonEMDC-YpK-1 (COVID-19) RNA [Presence] in Respiratory specimen by AMELIE with probe oexssugbg1417-37-21 06:11:54 Test Item Value Reference Range Interpretation Comments SARS-CoV-2 (COVID-19) Indeterminate result Not-Detected RNA [Presence] in Respiratory specimen by AMELIE with probe detection (test code = 01299-9) SARS-CoV-2 (COVID-19) RNA [Presence] in Respiratory specimen by AMELIE with probe fagyjiwel2197-42-57 05:59:39 Test Item Value Reference Range Interpretation Comments SARS-CoV-2 (COVID-19) Indeterminate result Not-Detected RNA [Presence] in Respiratory specimen by AMELIE with probe detection (test code = 18190-9) SARS-CoV-2 (COVID-19) RNA [Presence] in Respiratory specimen by AMELIE with probe nqoixmsxg4900-68-46 05:56:50 Test Item Value Reference Range Interpretation Comments SARS-CoV-2 (COVID-19) Indeterminate result Not-Detected RNA [Presence] in Respiratory specimen by AMELIE with probe detection (test code = 14152-7) SARS-CoV-2 (COVID-19) RNA [Presence] in Respiratory specimen by AMELIE with probe shwfmwgzz2693-81-63 05:54:03 Test Item Value Reference Range Interpretation Comments SARS-CoV-2 (COVID-19) Indeterminate result Not-Detected RNA [Presence] in Respiratory specimen by AMELIE with probe detection (test code = 38650-8) SARS-CoV-2 (COVID-19) RNA [Presence] in Respiratory specimen by AMELIE with probe hyiowlzdd0740-49-55 05:52:04 Test Item Value Reference Range Interpretation Comments SARS-CoV-2 (COVID-19) Indeterminate result Not-Detected RNA [Presence] in Respiratory specimen by AMELIE with probe detection (test code = 00400-6) SARS-CoV-2 (COVID-19) RNA [Presence] in Respiratory specimen by AMELIE with probe krjafrdno5841-44-05 05:48:45 Test Item Value Reference Range Interpretation Comments SARS-CoV-2 (COVID-19) Indeterminate result Not-Detected RNA [Presence] in Respiratory specimen by AMELIE with probe detection (test code = 68264-5) SARS-CoV-2 (COVID-19) RNA [Presence] in Respiratory specimen by AMELIE with probe zqicffors1062-27-66 06:47:24 Test Item Value Reference Range Interpretation Comments SARS-CoV-2 (COVID-19) RNA [Presence] Detected Not-Detected in Respiratory specimen by AMELIE with probe detection (test code = 37228-4) SARS coronavirus 2 RNA [Presence] in Respiratory specimen by AMELIE with probe okhgfhtka0023-92-25 02:05:11 Test Item Value Reference Range Interpretation Comments SARS coronavirus 2 RNA [Presence] in Detected Not-Detected Respiratory specimen by AMELIE with probe detection (test code = 57189-2) CHEST 2 SZNKQ6744-43-02 12:31:00 [place] [address] Patient Name: DAMON CLINE MR #: [id number] : 1980 Age/Sex: 37/F Req #: [id number] Adm Physician: Ordered by: LENNY MURPHY [employer]ING CHEMIST Report #: [id number] Location: ER Room/Bed: Procedure: [id number] DX/CHEST 2 VIEWS Exam Date: 07/18/18 Exam Time: 1213 REPORT STATUS: Signed EXAMINATION: CHEST 2 VIEWS INDICATION: Left upper posterior chest pain. COMPARISON: None FINDINGS: TUBES and LINES: None. LUNGS: Lungs are well inflated. Lungs are clear. There is no evidence of pneumonia or pulmonary edema. PLEURA: No pleural effusion or pneumothorax. HEART AND MEDIASTINUM: The cardiomediastinal silhouette is unremarkable. BONES AND SOFT TISSUES: No acute osseous lesion. Soft tissues are unremarkable. UPPER ABDOMEN: No free air under the diaphragm. IMPR ESSION: No acute thoracic abnormality. Signed by: Dr. Ayala Law MD on 07/18/2018 12:33 PM Dictated By: AYALA LAW MD 1233 Transcribed By: NARAYAN on 07/18/18 1233 COPY TO: LENNY MURPHY [id number] 12:23:00 Test Item Value Reference Range Interpretation Comments Troponin I (test code = EAD4902) 0.002 0-0.300 [facility] HospitalCreatine Kinase [id number] 12:23:00 Test Item Value Reference Range Interpretation Comments Creatine Kinase MB (test code = 0.90 0-5.0 38772-0) [facility] Lakeodium Fcqiv7763-06-63 12:16:00 Test Item Value Reference Range Interpretation Comments Sodium Level (test code = 2951-2) 139 136-145 [facility] HospitalPotassium Rovot9126-86-83 12:16:00 Test Item Value Reference Range Interpretation Comments Potassium Level (test code = 2823-3) 4.0 3.5-5.1 [facility] HospitalChloride Caqdw4689-54-34 12:16:00 Test Item Value Reference Range Interpretation Comments Chloride Level (test code = 2075-0) 107 98-107 [facility] HospitalCarbon Dioxide Tzrgl1792-77-73 12:16:00 Test Item Value Reference Range Interpretation Comments Carbon Dioxide Level (test code = 22 22-29 8-9) [facility] HospitalAnion Lin3596-51-31 12:16:00 Test Item Value Reference Range Interpretation Comments Anion Gap (test code = 74315-8) 14.0 8-16 [facility]Blood Urea [id number] 12:16:00 Test Item Value Reference Range Interpretation Comments Blood Urea Nitrogen (test code = 06-06 3094-0) [facility]Creatinine2018-09-06 12:16:00 Test Item Value Reference Range Interpretation Comments Creatinine (test code = 2160-0) 0.66 0.57-1.11 [facility]BUN/Creatinine [id number] 12:16:00 Test Item Value Reference Range Interpretation Comments BUN/Creatinine Ratio (test code = 05-06 3097-3) [facility] HospitalEstimat Glomerular Filtration Rate 2018-07-18 12:16:00 Test Item Value Reference Range Interpretation Comments Estimat Glomerular Filtration Rate 60- >60 (test code = 09725-9) Ranges were taken from the National Kidney Disease Education Program and the National Kidney Foundation literature.Reference ranges:60 or greater: Wjmeyh87- 59 (for 3 consecutive months): Chronic kidneydisease 15 or less: Kidney failure [facility] HospitalGlucose [id number] 12:16:00 Test Item Value Reference Range Interpretation Comments Glucose Level (test code = YFL1372) 92 74-118 [facility] HospitalCalcium [id number] 12:16:00 Test Item Value Reference Range Interpretation Comments Calcium Level (test code = 20493-9) 8.8 8.4-10.2 [facility] HospitalMagnesium [id number] 12:16:00 Test Item Value Reference Range Interpretation Comments Magnesium Level (test code = 64875-9) 2.0 1.3-2.1 [facility] HospitalTotal [id number] 12:16:00 Test Item Value Reference Range Interpretation Comments Total Bilirubin (test code = 1975-2) 0.4 0.2-1.2 [facility] HospitalAspartate Amino Transf (AST/SGOT) 2018-07-18 12:16:00 Test Item Value Reference Range Interpretation Comments Aspartate Amino Transf (AST/SGOT) (test 14 5-34 code = Aspartate Amino Transf (AST/SGOT)) [facility] HospitalAlanine Aminotransferase (ALT/SGPT) 2018-07-18 12:16:00 Test Item Value Reference Range Interpretation Comments Alanine Aminotransferase (ALT/SGPT) 11 0-55 (test code = 1742-6) [facility] HospitalTotal [id number] 12:16:00 Test Item Value Reference Range Interpretation Comments Total Protein (test code = 2885-2) 6.7 6.5-8.1 [facility] HospitalAlbumin2018-09-06 12:16:00 Test Item Value Reference Range Interpretation Comments Albumin (test code = 1751-7) 3.7 3.5-5.0 [facility] HospitalGlobulin2018-09-06 12:16:00 Test Item Value Reference Range Interpretation Comments Globulin (test code = 26620-8) 3.0 2.3-3.5 [facility] HospitalAlbumin/Globulin [id number] 12:16:00 Test Item Value Reference Range Interpretation Comments Albumin/Globulin Ratio (test code = 1.2 0.8-2.0 1759-0) [facility] HospitalAlkaline [id number] 12:16:00 Test Item Value Reference Range Interpretation Comments Alkaline Phosphatase (test code = 50 40-150 6768-6) [facility] HospitalCreatine [id number] 12:16:00 Test Item Value Reference Range Interpretation Comments Creatine Kinase (test code = 2157-6) 58 29-168 [facility] HospitalHuman Chorionic Gonadotropin, Qual 2018-07-18 12:04:00 Test Item Value Reference Range Interpretation Comments Human Chorionic Gonadotropin, Qual NEGATIVE NEGATIVE (test code = 2118-8) [facility] HospitalWhite Blood [id number] 12:02:00 Test Item Value Reference Range Interpretation Comments White Blood Count (test code = 6690-2) 5.58 4.8-10.8 [facility] HospitalRed Blood [id number] 12:02:00 Test Item Value Reference Range Interpretation Comments Red Blood Count (test code = 789-8) 4.14 3.6-5.1 [facility] HospitalHemoglobin2018-09-06 12:02:00 Test Item Value Reference Range Interpretation Comments Hemoglobin (test code = 67023-8) 12.9 12.0-16.0 [facility] HospitalHematocrit2018-09-06 12:02:00 Test Item Value Reference Range Interpretation Comments Hematocrit (test code = 4544-3) 37.6 34.2-44.1 [facility] HospitalMean Corpuscular [id number] 12:02:00 Test Item Value Reference Range Interpretation Comments Mean Corpuscular Volume (test code = 90.8 81-99 787-2) [facility] HospitalMean Corpuscular [id number] 12:02:00 Test Item Value Reference Range Interpretation Comments Mean Corpuscular Hemoglobin (test code 31.2 28-32 = 785-6) [facility] HospitalMean Corpuscular Hemoglobin Concent 2018-07-18 12:02:00 Test Item Value Reference Range Interpretation Comments Mean Corpuscular Hemoglobin Concent 34.3 31-35 (test code = 786-4) [facility] HospitalRed Cell Distribution [id number] 12:02:00 Test Item Value Reference Range Interpretation Comments Red Cell Distribution Width (test code 13.4 11.7-14.4 = 40542-4) [facility] HospitalPlatelet [id number] 12:02:00 Test Item Value Reference Range Interpretation Comments Platelet Count (test code = 777-3) 153 140-360 [facility] HospitalNeutrophils (%) (Auto)2018-07-18 12:02:00 Test Item Value Reference Range Interpretation Comments Neutrophils (%) (Auto) (test code = 71.2 38.7-80.0 94722-6) [facility] HospitalLymphocytes (%) (Auto)2018-07-18 12:02:00 Test Item Value Reference Range Interpretation Comments Lymphocytes (%) (Auto) (test code = 19.4 18.0-39.1 736-9) [facility] HospitalMonocytes (%) (Auto)2018-07-18 12:02:00 Test Item Value Reference Range Interpretation Comments Monocytes (%) (Auto) (test code = 8.2 4.4-11.3 5905-5) [facility] HospitalEosinophils (%) (Auto)2018-07-18 12:02:00 Test Item Value Reference Range Interpretation Comments Eosinophils (%) (Auto) (test code = 0.2 0.0-6.0 713-8) [facility] HospitalBasophils (%) (Auto)2018-07-18 12:02:00 Test Item Value Reference Range Interpretation Comments Basophils (%) (Auto) (test code = 0.5 0.0-1.0 706-2) [facility] HospitalIM GRANULOCYTES %2018-07-18 12:02:00 Test Item Value Reference Range Interpretation Comments IM GRANULOCYTES % (test code = IM 0.5 0.0-1.0 GRANULOCYTES %) [facility] HospitalNeutrophils # (Auto)2018-07-18 12:02:00 Test Item Value Reference Range Interpretation Comments Neutrophils # (Auto) (test code = 4.0 2.1-6.9 751-8) [facility] HospitalLymphocytes # (Auto)2018-07-18 12:02:00 Test Item Value Reference Range Interpretation Comments Lymphocytes # (Auto) (test code = 1.1 1.0-3.2 25236-0) [facility] HospitalMonocytes # (Auto)2018-07-18 12:02:00 Test Item Value Reference Range Interpretation Comments Monocytes # (Auto) (test code = 742-7) 0.5 0.2-0.8 [facility] HospitalEosinophils # (Auto)2018-07-18 12:02:00 Test Item Value Reference Range Interpretation Comments Eosinophils # (Auto) (test code = 0.0 0.0-0.4 711-2) [facility] HospitalBasophils # (Auto)2018-07-18 12:02:00 Test Item Value Reference Range Interpretation Comments Basophils # (Auto) (test code = 704-7) 0.0 0.0-0.1 [facility] HospitalAbsolute Immature Granulocyte (auto 2018-07-18 12:02:00 Test Item Value Reference Range Interpretation Comments Absolute Immature Granulocyte (auto 0.03 0-0.1 (test code = Absolute Immature Granulocyte (auto) [facility]
[2021-05-20 13:58] LABS: Urine Blood Negative (Negative); Urine Glucose Negative (Negative); Urine Protein Negative (Negative); Urine Specific Gravity 1.025 (1.005-1.030)
[2021-05-20] MEDS ORDERED: KETOROLAC 30 MG/ML INJ ONE (14:01)
[2021-05-20] MEDS ORDERED: METHYLPREDNISOLONE 125 MG INJ ONE (14:01)
[2021-05-20 14:25] LABS: Absolute Lymphocytes (CBC) 1.6 K/uL (0.7-4.9); Basophils % 0.8 % (0-1.3); Hematocrit 38.2 % (36.0-45.0); Lymphocytes % 31.4 % (15.3-44.8); RBC Red Blood Cell Count 4.38 M/uL (3.86-4.86)
[2021-05-20 14:26] LABS: Protime INR 0.98
[2021-05-20 14:27] LABS: ALT/SGPT 21 U/L (12-78); AST/SGOT 21 U/L (15-37); Albumin 3.5 g/dL (3.4-5.0); Alkaline Phosphatase 65 U/L (45-117); BUN Blood Urea Nitrogen 12 mg/dL (7-18); Bicarbonate 27 mmol/L (21-32); Bilirubin Direct < 0.1 mg/dL (0-0.2); Bilirubin Total 0.4 mg/dL (0.2-1.0); Glucose Level 88 mg/dL (74-106); NT PRO-BNP 28 pg/mL (<125); Protein, Total 7.1 g/dL (6.4-8.2); Sodium Level 143 mmol/L (136-145); Troponin (Emerg Dept Use Only) < 0.02 ng/mL (0.0-0.045)
--- NOTE | 2021-05-20 14:51 | RAD REPORT ---
EXAM DESCRIPTION: David Single View05/20/2021 1:40 pm CLINICAL HISTORY: Chest pain COMPARISON: 2014 FINDINGS: The lungs appear clear of acute infiltrate. The heart is normal size IMPRESSION: No acute abnormalities displayed
--- NOTE | 2021-05-20 15:55 | ER ---
Nurse's Notes [facility] Name: Vibha Vázquez Age: 40 yrs Sex: Female : 1980 Arrival Date: 05/20/2021 Time: 10:57 Bed 18 Private MD: Diagnosis: Chest pain, unspecified;Urinary Tract Infection Presentation: 05/20 11:05 Chief complaint: Patient states: substernal chest pain that began 4 days ago that ss radiates towards L side of chest and down to epigastric area. Coronavirus screen: Client denies travel out of the [place] in the last 14 days. Ebola Screen: Patient denies exposure to infectious person. Patient denies travel to an Ebola-affected area in the 21 days before illness onset. Initial Sepsis Screen: Does the patient meet any 2 criteria? No. Patient's initial sepsis screen is negative. Does the patient have a suspected source of infection? No. Patient's initial sepsis screen is negative. Risk Assessment: Do you want to hurt yourself or someone else? Patient reports no desire to harm self or others. Onset of symptoms was May 16, 2021. 11:05 Method Of Arrival: Ambulatory ss 11:05 Acuity: NKECHI 3 ss Triage Assessment: 11:15 General: Appears in no apparent distress. uncomfortable, Behavior is cooperative, bp appropriate for age, anxious. Pain: Complains of pain in mid-sternal area. EENT: No deficits noted. Neuro: No deficits noted. Cardiovascular: Rhythm is sinus rhythm. Respiratory: No deficits noted. GI: No signs and/or symptoms were reported involving the gastrointestinal system. : No signs and/or symptoms were reported regarding the genitourinary system. Derm: No deficits noted. Musculoskeletal: No deficits noted. Historical: - Allergies: 11:47 No Known Allergies; ss - PMHx: 11:47 Asthma; Herniated disc; spinal stenosis; UTI; ss - Immunization history:: Adult Immunizations. - Social history:: Smoking status: . Screenin:15 Abuse screen: Denies threats or abuse. Denies injuries from another. Nutritional bp screening: No deficits noted. Tuberculosis screening: No symptoms or risk factors identified. Fall Risk None identified. Assessment: 11:15 General: SEE TRIAGE NOTE. bp 12:00 Reassessment: No changes from previously documented assessment. Patient and/or family bp updated on plan of care and expected duration. Pain level reassessed. Patient is alert, oriented x 3, equal unlabored respirations, skin warm/dry/pink. 13:00 Reassessment: No changes from previously documented assessment. Patient and/or family bp updated on plan of care and expected duration. Pain level reassessed. Patient is alert, oriented x 3, equal unlabored respirations, skin warm/dry/pink. 15:00 Reassessment: No changes from previously documented assessment. Patient and/or family bp updated on plan of care and expected duration. Pain level reassessed. Patient is alert, oriented x 3, equal unlabored respirations, skin warm/dry/pink. 16:34 Reassessment: PT D/C HOME AMBULATORY. DX WITH NON-CARDIAC CP AND UTI. bp Vital Signs: 11:17 BP 130 / 92; Pulse 70; Resp 18; Temp 98.9(O); Pulse Ox 100% on R/A; Weight 81.65 kg; bp Height 5 ft. 5 in. (165.10 cm); Pain 5/10; 14:00 BP 122 / 81; Pulse 57; Resp 16; Pulse Ox 100% ; bp 16:00 BP 123 / 79; Pulse 65; Resp 16; Temp 98.9; Pulse Ox 100% ; bp 11:17 Body Mass Index 29.95 (81.65 kg, 165.10 cm) bp ED Course: 10:57 Patient arrived in ED. bp1 11:09 Spencer Christian, ALFREDO is Primary Nurse. bp 11:09 Partha Lange MD is Attending Physician. kdr 11:15 Patient maintains SpO2 saturation greater than 95% on room air. bp 11:15 Patient has correct armband on for positive identification. Bed in low position. Call bp light in reach. Side rails up X2. customer field representative on. Pulse ox on. NIBP on. 11:22 EKG done, by ED staff, reviewed by Partha Lange MD. dh3 11:47 Triage completed. ss 11:47 Arm band placed on right wrist. ss 12:30 Inserted saline lock: 20 gauge in right antecubital area, using aseptic technique. bp Blood collected. 13:40 XRAY Chest (1 view) In Process Unspecified. EDMS 16:35 No provider procedures requiring assistance completed. IV discontinued, intact, bp bleeding controlled, No redness/swelling at site. Pressure dressing applied. Administered Medications: 13:30 Drug: Ketorolac 15 mg Route: IVP; Site: right hand; bp 14:35 Follow up: Response: Pain is decreased bp 13:30 Drug: SOLU-Medrol (methylPrednisoLONE) 125 mg Route: IVP; Site: left hand; bp 14:34 Follow up: Response: No adverse reaction bp Outcome: 15:54 Discharge ordered by . kdr 16:35 Admitted to 16:35 Condition: stable 16:35 Discharge instructions given to Instructed on 16:35 Critical Care visit due to severe bleeding. 16:59 Patient left the ED. bp Signatures: Dispatcher [employer] EDMS Partha Lange MD MD kdr Smirch, Shelby RN RN Pat Presley [facility] Spencer Christian RN RN bp Sintia Torres bp1
--- NOTE | 2021-05-20 15:55 | EDPHYS ---
Physician Documentation [facility] Name: Vibha Vázquez Age: 40 yrs Sex: Female : 1980 Arrival Date: 05/20/2021 Time: 10:57 Bed 18 Private MD: ED Physician Partha Lange HPI: 05/20 13:22 This 40 yrs old Female presents to ER via Ambulatory with complaints of Chest kdr Pain. 13:22 The patient or guardian reports chest pain that is located primarily in the substernal kdr area, anterior chest wall, left. Onset: gradually, 4 day(s) ago. The pain radiates to left jaw, Left ear. The chest pain is described as aching, dull, a pressure. Duration: The patient or guardian reports a single episode, that is still ongoing, and unchanged. Severity of pain: At its worst the pain was mild moderate just prior to arrival. The patient has not experienced similar symptoms in the past. The patient has been recently seen by a physician: the patient's primary care provider, The patient has been battling a possible dental infection on the left with prior pain in her left ear. . Historical: - Allergies: 11:47 No Known Allergies; ss - PMHx: 11:47 Asthma; Herniated disc; spinal stenosis; UTI; ss - Immunization history:: Adult Immunizations. - Social history:: Smoking status: . ROS: 13:22 Constitutional: Negative for fever, chills, and weight loss, Eyes: Negative for injury, kdr pain, redness, and discharge, ENT: Negative for injury, pain, and discharge, Neck: Negative for injury, pain, and swelling, Respiratory: Negative for shortness of breath, cough, wheezing, and pleuritic chest pain, Abdomen/GI: Negative for abdominal pain, nausea, vomiting, diarrhea, and constipation, Back: Negative for injury and pain, : Negative for injury, bleeding, discharge, and swelling, MS/Extremity: Negative for injury and deformity, Skin: Negative for injury, rash, and discoloration, Neuro: Negative for headache, weakness, numbness, tingling, and seizure activity. Psych: Negative for depression, anxiety, suicide ideation, homicidal ideation, and hallucinations, Allergy/Immunology: Negative for hives, rash, and allergies, Endocrine: Negative for neck swelling, polydipsia, polyuria, polyphagia, and marked weight changes, Hematologic/Lymphatic: Negative for swollen nodes, abnormal bleeding, and unusual bruising. 13:22 Cardiovascular: Positive for chest pain, Negative for edema, orthopnea, palpitations, paroxysmal nocturnal dyspnea. Exam: 13:22 Constitutional: This is a well developed, well nourished patient who is awake, alert, kdr and in no acute distress. Head/Face: Normocephalic, atraumatic. Eyes: Pupils equal round and reactive to light, extra-ocular motions intact. Lids and lashes normal. Conjunctiva and sclera are non-icteric and not injected. Cornea within normal limits. Periorbital areas with no swelling, redness, or edema. Neck: Trachea midline, no thyromegaly or masses palpated, and no cervical lymphadenopathy. Supple, full range of motion without nuchal rigidity, or vertebral point tenderness. No Meningismus. Chest/axilla: Normal chest wall appearance and motion. Nontender with no deformity. No lesions are appreciated. Cardiovascular: Regular rate and rhythm with a normal S1 and S2. No gallops, murmurs, or rubs. Normal PMI, no JVD. No pulse deficits. Respiratory: Lungs have equal breath sounds bilaterally, clear to auscultation and percussion. No rales, rhonchi or wheezes noted. No increased work of breathing, no retractions or nasal flaring. Abdomen/GI: Soft, non-tender, with normal bowel sounds. No distension or tympany. No guarding or rebound. No evidence of tenderness throughout. Back: No spinal tenderness. No costovertebral tenderness. Full range of motion. Skin: Warm, dry with normal turgor. Normal color with no rashes, no lesions, and no evidence of cellulitis. MS/ Extremity: Pulses equal, no cyanosis. Neurovascular intact. Full, normal range of motion. Neuro: Awake and alert, GCS 15, oriented to person, place, time, and situation. Cranial nerves II-XII grossly intact. Motor strength 5/5 in all extremities. Sensory grossly intact. Cerebellar exam normal. Normal gait. Psych: Awake, alert, with orientation to person, place and time. Behavior, mood, and affect are within normal limits. Vital Signs: 11:17 BP 130 / 92; Pulse 70; Resp 18; Temp 98.9(O); Pulse Ox 100% on R/A; Weight 81.65 kg; bp Height 5 ft. 5 in. (165.10 cm); Pain 5/10; 14:00 BP 122 / 81; Pulse 57; Resp 16; Pulse Ox 100% ; bp 16:00 BP 123 / 79; Pulse 65; Resp 16; Temp 98.9; Pulse Ox 100% ; bp 11:17 Body Mass Index 29.95 (81.65 kg, 165.10 cm) bp MDM: 13:22 Data reviewed: vital signs, nurses notes, lab test result(s), EKG, radiologic studies. kdr 15:54 Patient medically screened. kdr 05/20 13:10 Order name: Basic Metabolic Panel; Complete Time: 15:11 kdr 05/20 13:10 Order name: CBC with Diff; Complete Time: 15:11 kdr 05/20 13:10 Order name: LFT's; Complete Time: 15:11 kdr 05/20 13:10 Order name: Magnesium; Complete Time: 15:11 kdr 05/20 13:10 Order name: NT PRO-BNP; Complete Time: 15:11 kdr 05/20 13:10 Order name: PT-INR; Complete Time: 15:11 kdr 05/20 13:10 Order name: Troponin (emerg Dept Use Only); Complete Time: 15:11 kdr 05/20 13:10 Order name: XRAY Chest (1 view); Complete Time: 15:11 kdr 05/20 13:10 Order name: EKG; Complete Time: 13:11 kdr 05/20 13:10 Order name: Cardiac monitoring; Complete Time: 14:34 kdr 05/20 13:10 Order name: EKG - Nurse/Tech; Complete Time: 14:34 kdr 05/20 13:58 Order name: Urine Dipstick-Ancillary; Complete Time: 14:12 EDMS 05/20 13:10 Order name: IV Saline Lock; Complete Time: 14:34 kdr 05/20 13:10 Order name: Labs collected and sent; Complete Time: 14:34 kdr 05/20 13:10 Order name: O2 Per Protocol; Complete Time: 13:37 kdr 05/20 13:10 Order name: O2 Sat Monitoring; Complete Time: 13:37 kdr Administered Medications: 13:30 Drug: Ketorolac 15 mg Route: IVP; Site: right hand; bp 14:35 Follow up: Response: Pain is decreased bp 13:30 Drug: SOLU-Medrol (methylPrednisoLONE) 125 mg Route: IVP; Site: left hand; bp 14:34 Follow up: Response: No adverse reaction bp Disposition Summary: 05/20/21 15:54 Discharge Ordered Location: Home kdr Problem: new kdr Symptoms: have improved kdr Condition: Stable kdr Diagnosis - Chest pain, unspecified kdr - Urinary Tract Infection kdr Followup: kdr - With: Private Physician - When: 2 - 3 days - Reason: If symptoms return, Further diagnostic work-up, Recheck today's complaints, Continuance of care, Re-evaluation by your physician Discharge Instructions: - Discharge Summary Sheet kdr - Urinary Tract Infection, Adult, [id number]-[id number] kdr - Nonspecific Chest Pain, Adult, [id number] kdr Forms: - Medication Reconciliation Form kdr - Thank You Letter kdr - Antibiotic Education kdr - Work release form em1 Prescriptions: - Ibuprofen 600 mg Oral Tablet - take 1 tablet by ORAL route every 6 hours As needed take with food; 30 tablet; kdr Refills: 0, Product Selection Permitted - Medrol (Chuy) 4 mg Oral Tablets, Dose Pack - take 1 tablet by ORAL route as directed - follow package instructions; 1 kdr packet; Refills: 0, Product Selection Permitted - Bactrim DS 800-160 mg Oral Tablet - take 1 tablet by ORAL route every 12 hours for 7 days; 14 tablet; Refills: 0, kdr Product Selection Permitted Signatures: Dispatcher [employer] Partha Shaffer MD MD kdr Jessica Harris, ALFREDO RN ss Spencer Christian, RN RN bp
[2021-05-20 17:12] VITALS: O2SAT 100
[2021-05-20 17:14] VITALS: BP 123/79; TEMP 98.9
--- NOTE | 2021-05-23 16:15 | EKG ---
Test Date: 2021-05-20 Test Time: 11:12:33 Animal Husbandman: HAILEY MEASUREMENT RESULTS: Intervals: Rate: 75 MT: 152 QRSD: 86 QT: 418 QTc: 466 [place]: P: 55 MT: 152 QRS: 44 T: 32 INTERPRETIVE STATEMENTS: Normal sinus rhythm Normal ECG Compared to ECG 08/01/2015 16:03:45 Sinus bradycardia no longer present Electronically Signed On 05-23-21 16:05:50 CDT by Usama Perkins
== END 2021-05-20 16:59 | disposition home or self-care (01) ==
LOC: ER 10:54
DX: N39.0 Urinary tract infection, site not specified (principal)
CPT/HCPCS: 36415; 71045; 80048; 80076; 81003; 83735; 83880; 84484; 85025; 85610; 93005; 99285; J2930